=== PATIENT | female | born 1960 | race Caucasian/White ===

== ENCOUNTER → 2021-08-10 | Outpatient (CLI) | payer BC | LOC: KOH-I 10:06 | DX: M51.36 Other intervertebral disc degeneration, lumbar region (principal); M51.37 Other intervertebral disc degeneration, lumbosacral region | CPT/HCPCS: 72148 ==

== ENCOUNTER → 2021-09-28 | Outpatient (CLI) | payer BC | LOC: KOH-I 13:57 | DX: M25.552 Pain in left hip (principal); M16.12 Unilateral primary osteoarthritis, left hip | CPT/HCPCS: 73502 ==

== ENCOUNTER → 2021-10-10 | Outpatient (CLI) | payer BC | LOC: KOH-I 10-02 15:15 | DX: M16.12 Unilateral primary osteoarthritis, left hip (principal); M25.452 Effusion, left hip; M70.62 Trochanteric bursitis, left hip | CPT/HCPCS: 73721 ==

== ENCOUNTER → 2021-12-18 | Outpatient (CLI) | payer BC ==
[~2021-12-18] VITALS: Ht 165.1 cm; Wt 104.3 kg
[~2021-12-18] MED LIST: ATORVASTATIN CA10 MG PO; CELECOXIB200 MG PO; ESCITALOPRAM OX20 MG PO; FLONASE ALLER15.8 ML; GABAPENTIN600 MG PO; HYDROCHLOROTHIA25 MG PO; LISINOPRIL10 MG PO; OSTEO BI-FLEX; TRAMADOL HCL50 MG PO
[2021-12-18 14:54] LABS: HEMOGLOBIN 13.7 gm/dl (12.3-15.3); RED BLOOD COUNT 3.94 M/UL (4.00-5.10)
[2021-12-18 15:18] LABS: BUN/CREATININE RATIO 14 (0-10)
== END ==
LOC: OPSV2 12:30 → EDSTATUS 12:30 → OPSV2 13:17
PROVIDERS: Orthopaedic Surgery
DX: Z01.818 Encounter for other preprocedural examination (principal); M16.12 Unilateral primary osteoarthritis, left hip
CPT/HCPCS: 71046; 80048; 85025; 93005

== ENCOUNTER → 2022-01-08 | Day surgery (SDC) | payer BC ==
[~2022-01-08] VITALS: Ht 165.1 cm; Wt 104.3 kg
[~2022-01-08] MED LIST changes: +CYCLOBENZAPRINE10 MG PO; +ELIQUIS 2.5 MG2.5 MG PO; +PERCOCET 10-321 EACH PO; +TYLENOL EXTRA500 MG PO; +ZOFRAN 4 MG TAB4 MG PO
[2022-01-08 07:14] LABS: BUN/CREATININE RATIO 17 (0-10)
== END | disposition home or self-care (01) ==
LOC: OR 05:26
PROVIDERS: Orthopaedic Surgery
DX: M16.12 Unilateral primary osteoarthritis, left hip (principal); I10 Essential (primary) hypertension; E78.5 Hyperlipidemia, unspecified; E66.9 Obesity, unspecified; F41.9 Anxiety disorder, unspecified; F17.210 Nicotine dependence, cigarettes, uncomplicated; Z79.01 Long term (current) use of anticoagulants; Z79.891 Long term (current) use of opiate analgesic; Z79.899 Other long term (current) drug therapy; Z68.38 Body mass index [BMI] 38.0-38.9, adult
CPT/HCPCS: 73501; 73502; 76000; 80048; 86850; 86900; 86901; 97116; 97162; 97166; 97530; 97535; C1713; C1776; J0690; J1100; J1170; J2001; J2250; J2274; J2370; J2405; J2704; J3010; J3370; J3475; J7050